=== PATIENT | male | born 1960 ===

== ENCOUNTER → 2022-04-09 | Outpatient (CLI) | payer BC | LOC: M OUTALCOH 08:08 | PROVIDERS: ATTEND Psychiatry & Neurology Psychiatry | DX: Z13.30 Encounter for screening examination for mental health and behavioral disorders, unspecified (principal) ==

== ENCOUNTER 2022-04-14 13:51 | Outpatient (RCR) | payer BC | END 2022-04-20 | LOC: M OUTALCOH 13:51 | PROVIDERS: ATTEND Psychiatry & Neurology Psychiatry | DX: Z03.89 Encounter for observation for other suspected diseases and conditions ruled out (principal) ==